=== PATIENT | female | born 1995 | race African-American/Black ===

== ENCOUNTER 2017-09-02 20:00 | Emergency (ER) | payer OTHER ==
[2017-09-02] MEDS ORDERED: ONDANSETRON ODT 4 MG TABLET TL STA (21:02)
--- NOTE | 2017-09-02 21:17 | ED Physician Documentation ---
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 denies: Abdominal Pain, Vomiting Neurologic: reports: Headache. denies: Generalized weakness, Focal weakness, Numbness, Difficulty speaking, Syncope, Confused, Altered mental status, Unresponsive, Head injury, LOC PD PAST MEDICAL HISTORY - Past Medical History Past Medical History: No - Past Surgical History Past Surgical History: No - Present Medications Home Medications: Ambulatory Orders Medication Instructions Recorded Confirmed Ondansetron Odt [Zofran] 4 mg TL Q6H PRN #10 tablet 09/02/17 Pnv95/Ferrous Fumarate/FA 1 tab PO DAILY 09/02/17 09/02/17 [ Tablet] - Allergies Allergies/Adverse Reactions: Allergies Allergy/AdvReac Type Severity Reaction Status Date / Time No Known Drug Allergies Allergy Verified 09/02/17 20:05 - Social History Does the pt smoke?: Yes Smoking Status: Current every day smoker Does the pt drink ETOH?: No Does the pt have substance abuse?: No - Immunizations Immunizations are current?: No PD ED PE NORMAL - Vitals Vital signs reviewed: Yes - General General: Alert and oriented X 3, Well developed/nourished, Other (appears to be in mild painful discomfort) - HEENT HEENT: PERRL, EOMI, Moist mucous membranes - Neck Neck: Supple, no meningeal sign - Cardiac Cardiac: RRR, No murmur - Respiratory Respiratory: No respiratory distress, Clear bilaterally - Abdomen Abdomen: Soft, Non tender - Derm Derm: Normal color, Warm and dry, No rash - Neuro Neuro: Alert and oriented X 3, 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, No motor deficit, No sensory deficit, Other (2+/4 DTR bilateral bicep, patella) Eye Opening: Spontaneous Motor: Obeys Commands Verbal: Oriented GCS Score: 15 Results - Vitals Vitals: Vital Signs - 24 hr 09/02/17 09/02/17 09/02/17 20:03 22:32 23:50 Temperature 35.9 C L Heart Rate 84 71 70 Respiratory 16 18 16 Rate Blood Pressure 131/75 H 116/63 103/64 O2 Saturation 100 100 95 Oxygen O2 Source Room air - Rads (name of study) CT head Radiology: Prelim report reviewed, See rad report PD MEDICAL DECISION MAKING - ED course Complexity details: reviewed results, re-evaluated patient, considered differential, d/w patient ED course: on initial H+P, aside from ODT zofran, patient declined any other medications including analgesics and/or other antinauseants. On reevaluation, after CT resulted, patient was sleeping, easily awoken to voice. Options for analgesia discussed, and opted for IM toradol with take-home vicodin to use if the toradol does not provide adequate relief within 1 hour. Departure - Departure Disposition: 01 Home, Self Care Clinical Impression: Headache Condition: Good Instructions: ED Cephalgia Unspecified Follow-Up: Scooby Estrada ARNP [Primary Care Provider] - Within 1 week Prescriptions: Ondansetron Odt [Zofran] 4 mg TL Q6H PRN #10 tablet PRN Reason: Nausea / Vomiting Forms: Activity restrictions Discharge Date/Time: 09/02/17 23:50
--- NOTE | 2017-09-02 22:50 | CT Report ---
EXAM: CT HEAD EXAM DATE: 09/02/2017 10:11 PM. CLINICAL HISTORY: Headache. COMPARISON: None. TECHNIQUE: Multiaxial CT images were obtained from the foramen magnum to the vertex. Reformats: Coron al. IV contrast: None. In accordance with CT protocol optimization, one or more of the following dose reduction techniques w ere utilized for this exam: automated exposure control, adjustment of mA and/or KV based on patient s ize, or use of iterative reconstructive technique. FINDINGS: Parenchyma: No intraparenchymal hemorrhage. No evidence of mass, midline shift, or CT findings of inf arction. Paula-white differentiation is distinct. Extraaxial Spaces: Normal for age. No subdural or epidural collections identified. Ventricles: Normal in size and position. Sinuses and Orbits: Imaged paranasal sinuses, orbits, and mastoids show no significant abnormality. Bones: No evidence of fracture or calvarial defect. Other: None. IMPRESSION: Normal head CT. [facility] Referring Provider Line: [phone] SITE ID: [id number]
--- NOTE | 2017-09-02 22:50 | CT Preliminary Report ---
Exam: CT HEAD W/O IMPRESSION: Normal head CT. [facility] SITE ID: [id number]
[2017-09-02] MEDS ORDERED: KETOROLAC 60 MG/2 ML VIAL IM STA (23:25)
[2017-09-02] MEDS ORDERED: HYDROcod/ACET 5/325 Prepack 6 PO STA (23:25)
[2017-09-02 23:50] VITALS: BP 103/64
== END 2017-09-02 23:50 | disposition home or self-care (01) ==
LOC: ED 20:00
DX: R51 Headache (principal); F17.200 Nicotine dependence, unspecified, uncomplicated
CPT/HCPCS: 70450; 96372; 99283; Q0162

== ENCOUNTER 2018-03-07 16:50 | Emergency (ER) | payer OTHER ==
[2018-03-07 17:02] VITALS: BP 143/88
--- NOTE | 2018-03-07 18:58 | ED Physician Documentation ---
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 No: Cancer, IVDA Similar symptoms before: Has not had sx before Recently seen: Other (seen at [facility] for same including a visit earlier today.) Review of Systems Constitutional: denies: Fever, Chills Respiratory: denies: Cough GI: denies: Abdominal Pain, Nausea, Vomiting : denies: Dysuria, Frequency, Hesitancy, Incontinent, Now EGA Musculoskeletal: denies: Neck pain Neurologic: denies: Focal weakness, Numbness PD PAST MEDICAL HISTORY - Past Medical History Past Medical History: No - Past Surgical History Past Surgical History: No - Present Medications Home Medications: Ambulatory Orders Medication Instructions Recorded Confirmed Pnv95/Ferrous Fumarate/FA 1 tab PO DAILY 09/02/17 09/02/17 [ Tablet] Cyclobenzaprine [Flexeril] 10 mg PO TID PRN #20 tablet 03/07/18 Meloxicam [Mobic] 15 mg PO DAILY PRN #20 tablet 03/07/18 tiZANidine [Zanaflex] 4 mg ORAL DAILY PRN 03/07/18 03/07/18 - Allergies Allergies/Adverse Reactions: Allergies Allergy/AdvReac Type Severity Reaction Status Date / Time No Known Drug Allergies Allergy Verified 03/07/18 18:38 - Social History Does the pt smoke?: No Smoking Status: Former smoker Does the pt drink ETOH?: No Does the pt have substance abuse?: No - Immunizations Immunizations are current?: No PD ED PE NORMAL - Vitals Vital signs reviewed: Yes - General General: Alert and oriented X 3, No acute distress - HEENT HEENT: Moist mucous membranes - Back Back: No spinal TTP (No step-off or deformity. No midline tenderness to palpation or percussion) - Derm Derm: Warm and dry - Extremities Extremities: Other (normal bilateral lower extremity patellar and ankle jerk reflexes. Normal great toe extension bilaterally. no saddle anesthesia) - Neuro Neuro: Alert and oriented X 3, No motor deficit, No sensory deficit - Psych Psych: Normal mood, Normal affect Results - Vitals Vitals: Vital Signs - 24 hr 03/07/18 16:57 Temperature 36.8 C Heart Rate 83 Respiratory 18 Rate Blood Pressure 143/88 H O2 Saturation 96 Oxygen O2 Source Room air PD MEDICAL DECISION MAKING - ED course Complexity details: considered differential (no cauda equina, no spinal epidural abscess, no fracture, no aortic dissection or evidence of aneursym rupture), d/w patient ED course: Patient is a 22-year-old female who presents to the emergency department for ongoing back pain for the past 2 weeks. She states that tizanidine just makes her sleep. Will trial her on Flexeril instead. We will also trial her on meloxicam. She is well-appearing, nontoxic. Afebrile. No evidence of cauda equina or epidural abscess. No evidence of fracture. Ambulating without difficulty. Patient counseled regarding signs and symptoms for which I believe and urgent re-evaluation would be necessary. Patient with good understanding of and agreement to plan and is comfortable going home at this time This document was made in part using voice recognition software. While efforts are made to proofread this document, sound alike and grammatical errors may occur. - Sepsis Event Vital Signs: Vital Signs - 24 hr 03/07/18 16:57 Temperature 36.8 C Heart Rate 83 Respiratory 18 Rate Blood Pressure 143/88 H O2 Saturation 96 Oxygen O2 Source Room air Departure - Departure Disposition: 01 Home, Self Care Clinical Impression: Acute myofascial strain Condition: Good Instructions: ED Neck Back Pain General Follow-Up: Scooby Estrada ARNP [Primary Care Provider] - Within 1 week Prescriptions: Cyclobenzaprine [Flexeril] 10 mg PO TID PRN #20 tablet PRN Reason: Spasms Meloxicam [Mobic] 15 mg PO DAILY PRN #20 tablet PRN Reason: pain Comments: Stop the tizanidine. Return if you worsen. Do not drive or operate heavy machinery while taking the Flexeril. Follow-up with your doctor for further care Forms: Activity restrictions Discharge Date/Time: 03/07/18 19:08
== END 2018-03-07 19:08 | disposition home or self-care (01) ==
LOC: ED 16:50
DX: S39.012A Strain of muscle, fascia and tendon of lower back, initial encounter (principal); X50.9XXA Other and unspecified overexertion or strenuous movements or postures, initial encounter; Y93.F2 Activity, caregiving, lifting; Y99.0 Civilian activity done for income or pay; Z87.891 Personal history of nicotine dependence
CPT/HCPCS: 99283

== ENCOUNTER 2018-03-14 19:34 | Emergency (ER) | payer OTHER ==
--- NOTE | 2018-03-14 20:40 | ED Physician Documentation ---
PD HPI BACK PAIN - Stated complaint Stated Complaint: BK INJ/PX - Chief complaint Chief Complaint: Back Pain - History obtained from History obtained from: Patient - History of Present Illness Timing - onset: How many weeks ago (1) Timing - details: Abrupt onset, Still present Location: Upper, Mid Quality: Pain, Spasm Associated symptoms: No: Fever, Weakness, Numbness Worsened by: Movement, Lifting Contributing factors: Lifting Similar symptoms before: Work up / diagnostics Recently seen: Clinic, Emergency Dept - Additional information Additional information: patient is a 22 year old female presenting to the emergency department for back pain. 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 Patient has been seen by both her pmd and the emergency department. Review of Systems Ten Systems: 10 systems reviewed and negative Musculoskeletal: reports: Back pain PD PAST MEDICAL HISTORY - Past Medical History Past Medical History: No - Past Surgical History Past Surgical History: No - Present Medications Home Medications: Ambulatory Orders Medication Instructions Recorded Confirmed Pnv95/Ferrous Fumarate/FA 1 tab PO DAILY 09/02/17 09/02/17 [ Tablet] Cyclobenzaprine [Flexeril] 10 mg PO TID PRN #20 tablet 03/07/18 Meloxicam [Mobic] 15 mg PO DAILY PRN #20 tablet 03/07/18 tiZANidine [Zanaflex] 4 mg ORAL DAILY PRN 03/07/18 03/07/18 - Allergies Allergies/Adverse Reactions: Allergies Allergy/AdvReac Type Severity Reaction Status Date / Time No Known Drug Allergies Allergy Verified 03/14/18 19:42 - Social History Does the pt smoke?: No Smoking Status: Never smoker Does the pt drink ETOH?: No Does the pt have substance abuse?: No - Immunizations Immunizations are current?: No Immunizations: TDAP >10years/unknown, Other immun current PD ED PE NORMAL - Vitals Vital signs reviewed: Yes - General General: Alert and oriented X 3, No acute distress - HEENT HEENT: Atraumatic - Cardiac Cardiac: RRR - Respiratory Respiratory: No respiratory distress - Abdomen Abdomen: Soft - Derm Derm: Normal color - Extremities Extremities: No deformity, Normal ROM s pain - Neuro Neuro: Alert and oriented X 3, No motor deficit, No sensory deficit, Normal speech Eye Opening: Spontaneous Motor: Obeys Commands Verbal: Oriented GCS Score: 15 - Psych Psych: Normal mood PD ED PE EXPANDED - Back Back: Vertebral tenderness, Soft tissue tenderness (tiffuse tenderness to palpation of upper and lower back, both central and peripheral) Results - Vitals Vitals: Vital Signs - 24 hr 03/14/18 19:37 Temperature 36.5 C Heart Rate 68 Respiratory 16 Rate Blood Pressure 142/67 H O2 Saturation 98 Oxygen O2 Source Room air - Rads (name of study) thorac/lumbar spine Radiology: Final report received (no acute fracture or dislocation, grade 1 spondyolithisis present) PD MEDICAL DECISION MAKING - ED course Complexity details: reviewed old records, reviewed results, re-evaluated patient , considered differential, d/w patient ED course: Paient was seen and examined at bedside. patient was well appearing in no distress. Patient did have midline tenderness throughout so imaging was ordered. Patient's images showed no acute fractures or dislocations. patient required no further work up and was stable for discharge with outpatient follow up. - Sepsis Event Vital Signs: Vital Signs - 24 hr 03/14/18 19:37 Temperature 36.5 C Heart Rate 68 Respiratory 16 Rate Blood Pressure 142/67 H O2 Saturation 98 Oxygen O2 Source Room air Departure - Departure Disposition: 01 Home, Self Care Clinical Impression: Back pain Condition: Good Instructions: ED Low Back Pain Injury Follow-Up: Scooby Estrada ARNP [Primary Care Provider] - Within 1 week Comments: Your diagnostics today were within normal limits. there is no acute abnormality. You should follow up with your doctor for further care. you can apply ice and heat and take motrin or tylenol as needed for pain.
--- NOTE | 2018-03-14 21:31 | XRAY Report ---
Reason: back pain Procedure Date: 03/14/2018 Accession Number: [id number] / [id number] Procedure: XR - ThoracoLumbar 2 View CPT Code: 70747 FULL RESULT: EXAM: THORACOLUMBAR SPINE RADIOGRAPHY EXAM DATE: 03/14/2018 09:09 PM. CLINICAL HISTORY: Lifting injury today. Pain beginning at L1, radiating superiorly. COMPARISONS: None. TECHNIQUE: 2 views. Spine is visualized from the superior endplate of T5 inferiorly to S4. FINDINGS: Alignment: Exaggeration of the normal lumbar lordosis. Mild kyphosis centered at T7. 4 mm retrolisthesis L4 on L5. 8 mm anterior subluxation L5 on S1. Bones: Old mild wedging T10 to L1. Breaks in the pars interarticularis, appear to be old. Disks: Mild narrowing L3-L4, L4-L5, and L5-S1. Soft Tissues: Right nipple ring. The visualized lungs and bowel gas pattern are normal. IMPRESSION: 1. Old mild wedging thoracolumbar junction. 2. Grade 1 spondylolisthesis L5-S1, most likely old given the appearance and clinical history. 3. Mild degenerative disk disease L3-L4, L4-L5, and L5-S1. [facility]
[2018-03-14 22:19] VITALS: BP 128/83
== END 2018-03-14 22:21 | disposition home or self-care (01) ==
LOC: ED 19:34
DX: M54.9 Dorsalgia, unspecified (principal); S39.012A Strain of muscle, fascia and tendon of lower back, initial encounter; X50.0XXA Overexertion from strenuous movement or load, initial encounter; Y93.F2 Activity, caregiving, lifting; Y99.0 Civilian activity done for income or pay
CPT/HCPCS: 72080; 99283

== ENCOUNTER 2018-08-14 18:01 | Emergency (ER) | payer OTHER ==
--- NOTE | 2018-08-14 18:48 | ED Physician Documentation ---
PD HPI BACK INJURY - Stated complaint Stated Complaint: BACK PAIN - History obtained from History obtained from: Patient - History of Present Illness Type of injury: Other (Had a lumbar sprain in February and since then has LBP radiating upward. Worse x3-4 weeks, no new injury. No help with ibuprofen or mobic. Xray in 03/05 with Grade 1 spondylolisthesis.) Review of Systems Constitutional: denies: Fever, Chills GI: denies: Abdominal Pain, Nausea, Vomiting Musculoskeletal: reports: Back pain. 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 : None HEENT: None Psych: None Musculoskeletal: None Derm: None - Past Surgical History Past Surgical History: No - Present Medications Home Medications: Ambulatory Orders Medication Instructions Recorded Confirmed Pnv95/Ferrous Fumarate/FA 1 tab PO DAILY 09/02/17 09/02/17 [ Tablet] Cyclobenzaprine [Flexeril] 10 mg PO TID PRN #20 tablet 03/07/18 Meloxicam [Mobic] 15 mg PO DAILY PRN #20 tablet 03/07/18 tiZANidine [Zanaflex] 4 mg ORAL DAILY PRN 03/07/18 03/07/18 tiZANidine [Zanaflex] 4 mg PO Q8H PRN #15 tablet 08/14/18 - Allergies Allergies/Adverse Reactions: Allergies Allergy/AdvReac Type Severity Reaction Status Date / Time No Known Drug Allergies Allergy Verified 03/14/18 19:42 - Social History Does the pt smoke?: No Smoking Status: Never smoker Does the pt drink ETOH?: Yes Does the pt have substance abuse?: Yes Substance Use and Type: Marijuana - Immunizations Immunizations are current?: No Immunizations: TDAP >10years/unknown, Other immun current - POLST Patient has POLST: No PD ED PE NORMAL - Vitals Vital signs reviewed: Yes - General General: Alert and oriented X 3, No acute distress - Back Back: No CVA TTP, No spinal TTP - Derm Derm: Normal color, Warm and dry, No rash - Extremities Extremities: No edema, No calf tenderness / cord, Other (The patient has equal and normal Achilles and patellar reflexes bilaterally. Normal sensation in all areas of the legs. Patient denies saddle anesthesia. Normal strength in flexion-extension at the ankles, knees, and flexion of the hips.) - Neuro Neuro: Alert and oriented X 3, Other (normal gait) Eye Opening: Spontaneous Motor: Obeys Commands Verbal: Oriented GCS Score: 15 Results - Vitals Vitals: Vital Signs - 24 hr 08/14/18 18:17 Temperature 36.8 C Heart Rate 68 Respiratory 16 Rate Blood Pressure 151/68 H O2 Saturation 99 Oxygen O2 Source Room air Departure - Departure Disposition: Home, Self Care Clinical Impression: Back pain Qualifiers: Back pain location: low back pain Chronicity: chronic Back pain laterality: bilateral Sciatica presence: without sciatica Qualified Code(s): M54.5 - Low back pain; G89.29 - Other chronic pain Condition: Good Record reviewed to determine appropriate education?: Yes Instructions: ED Low Back Pain Injury Prescriptions: tiZANidine [Zanaflex] 4 mg PO Q8H PRN #15 tablet PRN Reason: Spasms Comments: Do not drink or drive tomorrow hour while taking the prescription muscle relaxer. The policy of this emergency department is to not give more than 3 prescriptions for narcotics or other controlled substances in any 1 year. You have already surpassed this benchmark and we cannot prescribe narcotics for you. I encourage you to follow up with your primary care physician or to establish care with a primary care physician for ongoing pain management. You are always welcome to seek emergency care here for this or new issues but there will likely be limitations in the prescription of narcotic pain medication. Your blood pressure was elevated today on check into the emergency department. This does not mean that you have hypertension, it is a common phenomenon to come to the emergency department and have elevated blood pressure. I recommend that you see your primary care physician within the week to have it rechecked when you are feeling better. Forms: Activity restrictions
[2018-08-14] MEDS ORDERED: tiZANidine 4 MG TABLET PO STA (18:56)
[2018-08-14 19:18] VITALS: BP 116/66
== END 2018-08-14 19:18 | disposition home or self-care (01) ==
LOC: ED 18:01
DX: M54.5 Low back pain (principal); G89.29 Other chronic pain; R03.0 Elevated blood-pressure reading, without diagnosis of hypertension
CPT/HCPCS: 99283; A9270

== ENCOUNTER 2018-12-15 12:16 | Emergency (ER) | payer OTHER ==
[2018-12-15 12:26] VITALS: BP 139/91
--- NOTE | 2018-12-15 13:37 | ED Physician Documentation ---
PD HPI BACK PAIN - Stated complaint Stated Complaint: BACK PX - Chief complaint Chief Complaint: Back Pain - History obtained from History obtained from: Patient - History of Present Illness Timing - onset: How many weeks ago (1) Timing - details: Still present Location: Lower, Right Quality: Pain, Similar to prior episodes Associated symptoms: No: Fever, Weakness, Numbness, Incontinent of urine Worsened by: Movement, Lifting, Twisting Contributing factors: Lifting - Treatment prior to arrival Treatment prior to arrival: Robaxin - Additional information Additional information: The patient is a 23-year-old female who presents with right lower back pain that has been worse than usual for the past week. She reports having chronic lower back pain since an injury in February 2018, but it has been worse for the past week. She does a significant amount of lifting at work. She denies any specific traumatic injury. She denies fever, urinary incontinence, numbness or weakness. She has been using Robaxin without relief. Review of Systems Constitutional: denies: Fever Nose: denies: Congestion Throat: denies: Sore throat Cardiac: denies: Chest pain / pressure Respiratory: denies: Dyspnea, Cough GI: denies: Abdominal Pain, Nausea, Vomiting : denies: Dysuria, Incontinent Skin: denies: Rash Musculoskeletal: reports: Back pain. 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 : None HEENT: None Psych: None Musculoskeletal: None, Chronic back pain Derm: None - Past Surgical History Past Surgical History: No - Present Medications Home Medications: Ambulatory Orders Medication Instructions Recorded Confirmed tiZANidine [Zanaflex] 4 mg ORAL DAILY PRN 03/07/18 12/15/18 Methocarbamol [Robaxin] 750 mg ORAL BID 12/15/18 12/15/18 traMADol [Ultram] 50 mg PO Q4-6H #14 tablet 12/15/18 - Allergies Allergies/Adverse Reactions: Allergies Allergy/AdvReac Type Severity Reaction Status Date / Time No Known Drug Allergies Allergy Verified 12/15/18 13:06 - Social History Does the pt smoke?: No Smoking Status: Never smoker Does the pt drink ETOH?: Yes Does the pt have substance abuse?: No - Immunizations Immunizations are current?: No Immunizations: TDAP >10years/unknown, Other immun current - POLST Patient has POLST: No PD ED PE NORMAL - Vitals Vital signs reviewed: Yes (Borderline hypertension initially.) - General General: Alert and oriented X 3, Well developed/nourished - HEENT HEENT: Atraumatic - Neck Neck: No bony TTP - Cardiac Cardiac: RRR - Respiratory Respiratory: No respiratory distress, Clear bilaterally - Abdomen Abdomen: Soft, Non tender, Other (overweight) - Back Back: No CVA TTP, No spinal TTP, Other (Tenderness to palpation on the right paralumbar musculature. No tenderness along the spinous process.) - Derm Derm: No rash - Extremities Extremities: No edema, No calf tenderness / cord, Other (Straight leg raise test is negative bilaterally.) - Neuro Neuro: Alert and oriented X 3, No motor deficit, No sensory deficit Results - Vitals Vitals: Vital Signs - 24 hr 12/15/18 12:21 Temperature 36.4 C L Heart Rate 75 Respiratory 16 Rate Blood Pressure 139/91 H O2 Saturation 100 Oxygen O2 Source Room air PD MEDICAL DECISION MAKING - ED course Complexity details: considered differential, d/w patient ED course: The patient's presentation is most consistent with lumbar strain causing acute exacerbation of chronic lower back pain. There is no clinical evidence to suggest cauda equina syndrome, spinal stenosis, or epidural abscess. Treatment in the emergency department included administration of dexamethasone 10 mg orally. I discussed with her the expected course of illness, symptomatic treatment and outpatient follow-up, as well as potentially worrisome signs or symptoms that should prompt reevaluation in the emergency department. She is being discharged with a prescription for tramadol, 14 tablets. Departure - Departure Disposition: 01 Home, Self Care Clinical Impression: Acute myofascial strain Condition: Stable Instructions: ED Low Back Pain Injury Follow-Up: Scooby Estrada ARNP [Primary Care Provider] - Prescriptions: traMADol [Ultram] 50 mg PO Q4-6H #14 tablet Comments: Apply ice pack to your lower back intermittently for the next 3 days. Continue using methocarbamol as previously prescribed if needed for muscle spasms. You can use tramadol as prescribed if needed for pain. Follow-up with your primary physician within 2 weeks. Call to schedule an appointment. Return to the emergency department if you develop increasing pain, numbness or weakness, or otherwise worsening symptoms. Forms: Activity restrictions
[2018-12-15] MEDS ORDERED: DEXAMETHASONE 10 MG/ML VIAL PO STA (13:40)
[2018-12-15] MEDS ORDERED: CHERRY SYRUP 10 ML UDC PO ONE (13:40)
== END 2018-12-15 13:58 | disposition home or self-care (01) ==
LOC: ED 12:16
DX: S39.012A Strain of muscle, fascia and tendon of lower back, initial encounter (principal); X50.0XXA Overexertion from strenuous movement or load, initial encounter; Y99.0 Civilian activity done for income or pay; G89.29 Other chronic pain
CPT/HCPCS: 99283

== ENCOUNTER 2019-01-13 16:07 | Emergency (ER) | payer OTHER ==
[2019-01-13 16:14] VITALS: BP 138/67
--- NOTE | 2019-01-13 17:04 | ED Physician Documentation ---
History of Present Illness - Stated complaint Stated Complaint: BACK PX/HEAD PX - Chief complaint Chief Complaint: General - History obtained from History obtained from: Patient - History of Present Illness Timing: Today (Headache started today, 02/25, occipital to vertex. Also neck pain with motion. Grdual onset. Crampy upper abd pain, on and off today. Non radiating.) Review of Systems Ten Systems: 10 systems reviewed and negative Constitutional: denies: Fever, Chills Throat: denies: Dental pain / toothache, Oral lesions / sores, Sore throat Cardiac: denies: Chest pain / pressure, Palpitations Respiratory: denies: Dyspnea, Cough PD PAST MEDICAL HISTORY - Past Medical History Past Medical History: Yes Cardiovascular: None Respiratory: None Neuro: None Endocrine/Autoimmune: None GI: None HRIS SPECIALIST: None : None HEENT: None Psych: None Musculoskeletal: Chronic back pain Derm: None - Past Surgical History Past Surgical History: No - Present Medications Home Medications: Ambulatory Orders Medication Instructions Recorded Confirmed tiZANidine [Zanaflex] 4 mg ORAL DAILY PRN 03/07/18 12/15/18 Methocarbamol [Robaxin] 750 mg ORAL BID 12/15/18 12/15/18 traMADol [Ultram] 50 mg PO Q4-6H #14 tablet 12/15/18 Hydrocodone/Acetaminophen 1 - 2 each PO Q6H PRN #10 tablet 01/13/19 [Hydrocodon-Acetaminophen 5-325] Omeprazole 20 mg PO DAILY #30 capsule. 01/13/19 - Allergies Allergies/Adverse Reactions: Allergies Allergy/AdvReac Type Severity Reaction Status Date / Time No Known Drug Allergies Allergy Verified 12/15/18 13:06 - Social History Does the pt smoke?: No Smoking Status: Never smoker Does the pt drink ETOH?: Yes Does the pt have substance abuse?: No - Immunizations Immunizations are current?: No Immunizations: TDAP >10years/unknown, Other immun current - POLST Patient has POLST: No PD ED PE NORMAL - Vitals Vital signs reviewed: Yes - General General: Alert and oriented X 3, No acute distress - HEENT HEENT: PERRL, EOMI - Neck Neck: Supple, no meningeal sign, No bony TTP - Cardiac Cardiac: RRR, No murmur - Respiratory Respiratory: No respiratory distress, Clear bilaterally - Abdomen Abdomen: Normal bowel sounds, Soft, Non tender - Back Back: No CVA TTP, No spinal TTP - Derm Derm: Normal color, Warm and dry - Extremities Extremities: No edema, No calf tenderness / cord - Neuro Neuro: Alert and oriented X 3, health education aide 2-12 intact, No motor deficit, No sensory deficit, Normal speech Eye Opening: Spontaneous Motor: Obeys Commands Verbal: Oriented GCS Score: 15 - Psych Psych: Normal mood, Normal affect Results - Vitals Vitals: Vital Signs - 24 hr 01/13/19 16:10 Temperature 36.5 C Heart Rate 66 Respiratory 16 Rate Blood Pressure 138/67 H O2 Saturation 99 Oxygen O2 Source Room air - Labs Labs: Laboratory Tests 01/13/19 17:19 Sodium 141 Potassium 3.6 Chloride 106 Carbon Dioxide 25 Anion Gap 10.0 BUN 16 Creatinine 1.0 Estimated GFR (MDRD) 84 L Glucose 101 H Calcium 9.3 Total Bilirubin 0.4 AST 20 ALT 17 Alkaline Phosphatase 74 Total Protein 8.1 Albumin 4.2 Globulin 3.9 Albumin/Globulin Ratio 1.1 Lipase 33 PD MEDICAL DECISION MAKING - ED course ED course: 23-year-old woman with benign sounding epigastric pain concerning for gastritis and headache without sudden onset of her neck stiffness. Departure - Departure Disposition: 01 Home, Self Care Clinical Impression: Headache Qualifiers: Headache type: tension-type Headache chronicity pattern: acute headache Intractability: not intractable Qualified Code(s): G44.209 - Tension-type headache, unspecified, not intractable Abdominal pain Qualifiers: Abdominal location: epigastric Qualified Code(s): R10.13 - Epigastric pain Health Concerns: Headache and abdominal pain with unremarkable examination and labs Plan of Treatment: Trial of hydrocodone and Prilosec Follow-up with your physician, next available appointment. Return for new or worsening symptoms. Care Goals: Improvement of symptoms Assessment: as above Instructions: ED Cephalgia Unspecified, ED Abdominal Pain Unkn Cause Prescriptions: Hydrocodone/Acetaminophen [Hydrocodon-Acetaminophen 5-325] 1 - 2 each PO Q6H PRN #10 tablet PRN Reason: pain Omeprazole 20 mg PO DAILY #30 capsule.
[2019-01-13] MEDS ORDERED: LIDOCAINE VISCOUS 2% 15 ML UDC MM STA (17:11)
[2019-01-13] MEDS ORDERED: IBUPROFEN 800 MG TABLET PO STA (17:11)
[2019-01-13] MEDS ORDERED: MAG HYDROX/AL HYDROX/SIMETH 30 ML UDC PO STA (17:11)
[2019-01-13] MEDS ORDERED: ACETAMINOPHEN 325 MG TABLET PO STA (17:11)
[2019-01-13 17:37] LABS: ALBUMIN 4.2 g/dL (3.2-5.5); ALBUMIN/GLOBULIN RATIO 1.1 (1.0-2.2); BILIRUBIN,TOTAL 0.4 mg/dL (0.2-1.0); CALCIUM 9.3 mg/dL (8.5-10.3); TOTAL PROTEIN 8.1 g/dL (6.7-8.2)
== END 2019-01-13 17:54 | disposition home or self-care (01) ==
LOC: ED 16:07
DX: G44.209 Tension-type headache, unspecified, not intractable (principal); R10.13 Epigastric pain
CPT/HCPCS: 80053; 83690; 99281; 99283; A9270

== ENCOUNTER 2019-01-17 21:39 | Emergency (ER) | payer OTHER ==
--- NOTE | 2019-01-17 23:32 | ED Physician Documentation ---
PD HPI BACK PAIN - Stated complaint Stated Complaint: BK PX - Chief complaint Chief Complaint: Back Pain - History obtained from History obtained from: Patient - History of Present Illness Timing - onset: Chronic Timing - details: Gradual onset, Waxing and waning Pain level now: 8 Location: Lower, Other (across lower back) Quality: Pain Associated symptoms: No: Fever, Weakness, Numbness, Incontinent of urine, Unable to urinate, Hematuria, Incontinent of stool Improves with: Rest Worsened by: Movement Recently seen: Emergency Dept (evaluataed last month and two months ago in this ED for similar back pain) - Additional information Additional information: c/o pain across lower back, "always been there but past few days it's increased" (per patient). no recent injury. Review of Systems Constitutional: denies: Fever : denies: Dysuria, Frequency, Incontinent, Hematuria Musculoskeletal: reports: Back pain. 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 01/13/19 Ketorolac [Toradol] 10 mg PO Q6H PRN #20 tablet 01/17/19 Metaxalone [Skelaxin] 800 mg PO TID PRN #30 tablet 01/17/19 - Allergies Allergies/Adverse Reactions: Allergies Allergy/AdvReac Type Severity Reaction Status Date / Time No Known Drug Allergies Allergy Verified 01/17/19 21:48 - Social History Does the pt smoke?: No Smoking Status: Never smoker Does the pt drink ETOH?: Yes Does the pt have substance abuse?: Yes Substance Use and Type: Marijuana - Immunizations Immunizations are current?: No Immunizations: TDAP >10years/unknown, Other immun current - POLST Patient has POLST: No PD ED PE NORMAL - Vitals Vital signs reviewed: Yes - General General: Alert and oriented X 3, No acute distress, Well developed/nourished - Back Back: No CVA TTP, No spinal TTP - Derm Derm: Normal color, Warm and dry, No rash - Neuro Neuro: Alert and oriented X 3, No motor deficit, No sensory deficit Results - Vitals Vitals: Vital Signs - 24 hr 01/17/19 23:59 Temperature 36.7 C Heart Rate 59 L Respiratory 18 Rate Blood Pressure 116/69 O2 Saturation 99 Oxygen O2 Source Room air PD MEDICAL DECISION MAKING - ED course Complexity details: reviewed old records, considered differential, d/w patient ED course: emergent testing not indicated; atraumatic, chronic low back pain that is worse over past few days. Prescribed vicodin last month and tramadol 2 months ago; she says she found the side effects unpleasant and thus has not been using either of these medications. Also has zanaflex. She is interested in medication with minimal side effects and thus toradol and skelaxin were given and prescribed (IM toradol in ED, PO toradol rx) Departure - Departure Disposition: Home, Self Care Clinical Impression: Back pain Qualifiers: Back pain location: low back pain Chronicity: chronic Back pain laterality: bilateral Sciatica presence: without sciatica Qualified Code(s): M54.5 - Low back pain Condition: Good Health Concerns: back pain Plan of Treatment: toradol given in ER and as prescription. muscle relaxant prescription Care Goals: pain control Assessment: see diagnosis Instructions: ED Neck Back Pain General Follow-Up: Scooby Estrada ARNP [Primary Care Provider] - (Call in the morning to arrange for next available appointment) Prescriptions: Ketorolac [Toradol] 10 mg PO Q6H PRN #20 tablet PRN Reason: Pain Metaxalone [Skelaxin] 800 mg PO TID PRN #30 tablet PRN Reason: Spasms Forms: Activity restrictions Discharge Date/Time: 01/18/19 00:08
[2019-01-17] MEDS ORDERED: KETOROLAC 60 MG/2 ML VIAL IM STA (23:54)
[2019-01-18] VITALS: BP 116/69
== END 2019-01-18 00:08 | disposition home or self-care (01) ==
LOC: ED 21:39
DX: M54.5 Low back pain (principal); G89.29 Other chronic pain
CPT/HCPCS: 96372; 99283